=== PATIENT | female | born 1985 ===

== ENCOUNTER 2020-10-06 07:55 | Emergency (ER) | payer BC ==
[~2020-10-06] VITALS: Ht 175.3 cm; Wt 95.3 kg
== END 2020-10-06 12:10 | disposition home or self-care (01) ==
LOC: ER 07:55
DX: B34.9 Viral infection, unspecified (principal); Z03.818 Encounter for observation for suspected exposure to other biological agents ruled out; R50.9 Fever, unspecified; R53.1 Weakness; R53.81 Other malaise